=== PATIENT | female | born 1965 | race Two or more races ===

== ENCOUNTER 2018-09-10 12:16 | Inpatient (IN) | payer OTHER ==
[2018-09-02 16:02] LABS: BASOPHILS % (AUTO) 0.4 % (0-1); EOSINOPHILS # (AUTO) 0.1 X10'3 (0-0.9); EOSINOPHILS % (AUTO) 1.6 % (0-6); LYMPHOCYTES # (AUTO) 1.9 X10'3 (1.1-4.8); MEAN CORPUSCULAR HEMOGLOBIN 31.1 PG (27.0-31.0); MEAN CORPUSCULAR HGB CONC 33.5 % (33.0-36.5); MEAN CORPUSCULAR VOLUME 92.7 FL (78-98); MEAN PLATELET VOLUME 8.9 FL (7.4-10.4); MONOCYTES # (AUTO) 0.7 X10'3 (0-0.9); MONOCYTES % (AUTO) 10.1 % (2-12); NEUTROPHILS # (AUTO) 3.7 X10'3 (1.8-7.7); NEUTROPHILS % (AUTO) 57.9 % (42-75); PRE OP HEMATOCRIT 41.8 % (35.0-45.0); PRE OP PLATELET COUNT 290 X10'3 (140-440); RED BLOOD COUNT 4.51 X10'6 (4.20-5.60)
[2018-09-02 16:10] LABS: ALBUMIN 3.6 G/DL (3.4-5.0); ALBUMIN/GLOBULIN RATIO 0.9 (1.1-1.5); ALKALINE PHOSPHATASE 99 IU/L (46-116); BLOOD UREA NITROGEN 13 MG/DL (7-18); BUN/CREATININE RATIO 20.3 (6.6-38.0); CALCIUM 8.8 MG/DL (8.5-10.1); CHLORIDE 104 MMOL/L (99-107); CREATININE 0.64 MG/DL (0.40-0.90); PRE OP ALT 44 U/L (30-65); PRE OP ANION GAP 8 (8-16); PRE OP AST 26 U/L (10-37); PRE OP BILIRUB, TOTAL 0.2 MG/DL (0.0-1.0); PRE OP GLUCOSE 113 MG/DL (70-104); PRE OP POTASSIUM 3.6 MMOL/L (3.4-5.1); PRE OP SODIUM 141 MMOL/L (135-145); TOTAL CARBON DIOXIDE 28.8 MMOL/L (24-32); TOTAL PROTEIN 7.4 G/DL (6.4-8.2); eGFR > 90 ML/MIN
[2018-09-02 16:14] LABS: PRE OP PROTIME 10.1 SECONDS (9.0-12.0)
[2018-09-02 16:18] LABS: CLARITY,URINE CLEAR (Clear); COLOR,URINE YELLOW (Yellow); GLUCOSE, URINE NEGATIVE (Neg); KETONES,URINE NEGATIVE (Neg); LEUKOCYTE ESTERASE ,URINE NEGATIVE (Neg); NITRITES, URINE NEGATIVE (Neg); OCCULT BLOOD,URINE NEGATIVE (Neg); PH,URINE 7.5 (4.8-8.0); PROTEIN,URINE NEGATIVE (Neg)
[2018-09-02 16:25] LABS: UA COLLECTION TYPE CLN CATCH MIDSTREAM
[~2018-09-10] VITALS: Ht 154.9 cm; Wt 90.9 kg
[2018-09-10] VITALS (13 sets, daily range): BP systolic 96–138; BP diastolic 52–92
[~2018-09-10 12:16] MED LIST: ALLO300T8 PO; DOCUMENT DATE & TIME OF BETA-BLOCKER PO ONE; METO-411 PO; acetaminophen 325mg tablet PO ONE; cefazolin/dext.iso 2gm/50ml 50 ML IV ONE; famotidine 20mg tablet PO ONE; gabapentin 300mg capsule PO ONE; metoclopramide 5 mg/ml inj IV ONE; oxyCODONE SR 10mg (sust. release) tab -2 tabs (20mg) PO ONE; ringers solution, lacted 1,000 ML IV SCH; tranexamic acid inj. 1,000 MG in normal saline 100ml IV soln 90 ML IV ONE; vancomycin inj 1,500 MG in normal saline 300ml IV soln IV ONE
[2018-09-10] MEDS ORDERED: morphine 10mg/ml inj. ONE (13:37)
[2018-09-10] MEDS ORDERED: ketorolac trometh. 30mg/ml inj. ONE (13:37)
[2018-09-10] MEDS ORDERED: epiNEPHrine 1 mg/ml inj ONE ×2 (13:37→18:51)
[2018-09-10] MEDS ORDERED: vancomycin 1,000mg inj ONE (13:37)
[2018-09-10] MEDS ORDERED: ROPIVAcaine 0.5% (5mg/ml) 30ml vial ONE ×3 (13:38→19:56)
[2018-09-10] MEDS ORDERED: tetracaine 1% (10mg/ml) pres. free inj. ONE (17:48)
[2018-09-10] MEDS ORDERED: MIDAZolam 1mg/ml 10ml vial ONE (17:49)
[2018-09-10] MEDS ORDERED: fentaNYL/PF 50MCG/1 ML 2ML syringe ONE (17:49)
[2018-09-10] MEDS ORDERED: BUPIVAcaine/dex-water/PF 7.5 mg/ml 2ml ampul ONE (17:53)
[2018-09-10] MEDS ORDERED: propofol inj 20 ML IV ONE (18:19)
[2018-09-10] MEDS ORDERED: ringers solution, lacted 1,000 ML IV SCH (18:54)
[2018-09-10] MEDS ORDERED: morphine 4 MG/ML inj SYRINge IV PRN ×2 (18:55)
[2018-09-10] MEDS ORDERED: meperidine/PF 25mg/ml syringe IV PRN ×3 (18:55)
[2018-09-10] MEDS ORDERED: proCHLORperazine 10 MG/2 ml inj IV PRN (18:55)
[2018-09-10] MEDS ORDERED: ondansetron/PF 4mg/2ml inj IV PRN ×2 (18:55→20:10)
[2018-09-10] MEDS ORDERED: acetaminophen 325mg tablet PO PRN (20:10)
[2018-09-10] MEDS ORDERED: HYDROmorphone 1 mg/ml syringe IV PRN (20:10)
[2018-09-10] MEDS ORDERED: bisacodyl 10mg suppository rectal RC PRN (20:10)
[2018-09-10] MEDS ORDERED: diphenhydrAMINE 25mg capsule PO PRN (20:10)
[2018-09-10] MEDS ORDERED: magnesium hydroxide 30ml (MOM) UD suspension PO PRN (20:10)
[2018-09-10] MEDS: potassium cl 20mEq in 1/2 NS 1,000 ML IV SCH (20:10)
[2018-09-10] MEDS ORDERED: oxyCODONE IR 5mg (immed. release) tablet PO PRN (20:10)
[2018-09-10] MEDS: sennosides 8.6mg tablet PO SCH (21:00)
[2018-09-10] MEDS: gabapentin 300mg capsule PO SCH (21:00)
[2018-09-10] MEDS ORDERED: tranexamic acid inj. 1,000 MG in normal saline 100ml IV soln 100 ML IV ONE (23:00)
[2018-09-11] VITALS (9 sets, daily range): BP systolic 92–118; BP diastolic 46–85
[2018-09-11] MEDS: ceFAZolin 1GM/D5W- ADD-VANTAGE 50 ML IV SCH ×2 (00:49→08:32)
[2018-09-11] MEDS: acetaminophen 325mg tablet PO SCH ×4 (02:54→19:01)
[2018-09-11] MEDS: HYDROmorphone 1 mg/ml syringe IV PRN ×3 (02:56→17:06)
[2018-09-11] MEDS: potassium cl 20mEq in 1/2 NS 1,000 ML IV SCH ×3 (03:05→19:06)
[2018-09-11 06:18] LABS: BASOPHILS % (AUTO) 0.3 % (0-1); EOSINOPHILS % (AUTO) 0 % (0-6); HEMATOCRIT 36.7 % (35.0-45.0); HEMOGLOBIN 12.3 g/dl (12.0-16.0); LYMPHOCYTES # (AUTO) 0.8 X10'3 (1.1-4.8); LYMPHOCYTES % (AUTO) 7.4 % (21-51); MEAN CORPUSCULAR HEMOGLOBIN 31.1 PG (27.0-31.0); MEAN CORPUSCULAR HGB CONC 33.5 % (33.0-36.5); MEAN CORPUSCULAR VOLUME 92.8 FL (78-98); MEAN PLATELET VOLUME 8.7 FL (7.4-10.4); MONOCYTES # (AUTO) 0.2 X10'3 (0-0.9); NEUTROPHILS # (AUTO) 9.6 X10'3 (1.8-7.7); NEUTROPHILS % (AUTO) 90.3 % (42-75); PLATELET COUNT 249 X10'3 (140-440); RED BLOOD COUNT 3.95 X10'6 (4.20-5.60); RED CELL DISTRIBUTION WIDTH 12.9 % (11.5-14.5); WHITE BLOOD COUNT 10.6 X10'3 (4.5-11.0)
[2018-09-11 06:22] LABS: ANION GAP 10 (8-16); CHLORIDE 103 MMOL/L (99-107); POTASSIUM 4.4 MMOL/L (3.5-5.1); SODIUM 137 MMOL/L (135-145); TOTAL CARBON DIOXIDE 24.1 MMOL/L (24-32)
[2018-09-11] MEDS: oxyCODONE IR 5mg (immed. release) tablet PO PRN ×4 (07:00→19:06)
[2018-09-11] MEDS: metoprolol succinate 25mg (24-HOUR) SR. Tablet PO SCH (08:00)
[2018-09-11] MEDS ORDERED: vancomycin/NS 1 GM ADD-VANTAGE 250 ML IV SCH (08:00)
[2018-09-11] MEDS: gabapentin 300mg capsule PO SCH ×3 (08:32→20:04)
[2018-09-11] MEDS: allopurinol 300 MG tablet PO SCH (08:33)
[2018-09-11] MEDS: celeCOXIB 100mg capsule PO SCH (19:01)
[2018-09-11] MEDS: enoxaparin 30mg/0.3ml syringe SQ SCH (19:02)
[2018-09-11] MEDS: sennosides 8.6mg tablet PO SCH (20:04)
[2018-09-11] MEDS: diphenhydrAMINE 25mg capsule PO PRN (21:11)
[2018-09-12] MEDS: acetaminophen 325mg tablet PO SCH ×4 (01:54→19:03)
[2018-09-12] MEDS: oxyCODONE IR 5mg (immed. release) tablet PO PRN ×5 (03:07→21:13)
[2018-09-12] MEDS: HYDROmorphone 1 mg/ml syringe IV PRN (04:37)
[2018-09-12 06:00] VITALS: BP 113/56
[2018-09-12 07:01] LABS: BASOPHILS % (AUTO) 0.3 % (0-1); EOSINOPHILS # (AUTO) 0.1 X10'3 (0-0.9); EOSINOPHILS % (AUTO) 1.5 % (0-6); HEMATOCRIT 31.4 % (35.0-45.0); HEMOGLOBIN 10.6 g/dl (12.0-16.0); LYMPHOCYTES % (AUTO) 28.8 % (21-51); MEAN CORPUSCULAR HEMOGLOBIN 31.1 PG (27.0-31.0); MEAN CORPUSCULAR HGB CONC 33.8 % (33.0-36.5); MEAN CORPUSCULAR VOLUME 92.2 FL (78-98); MEAN PLATELET VOLUME 8.7 FL (7.4-10.4); MONOCYTES # (AUTO) 0.8 X10'3 (0-0.9); MONOCYTES % (AUTO) 12.2 % (2-12); NEUTROPHILS % (AUTO) 57.2 % (42-75); PLATELET COUNT 206 X10'3 (140-440); RED BLOOD COUNT 3.41 X10'6 (4.20-5.60)
[2018-09-12] MEDS: metoprolol succinate 25mg (24-HOUR) SR. Tablet PO SCH (08:00)
[2018-09-12] MEDS: enoxaparin 30mg/0.3ml syringe SQ SCH ×2 (08:15→19:06)
[2018-09-12] MEDS: gabapentin 300mg capsule PO SCH ×3 (08:16→21:30)
[2018-09-12] MEDS: allopurinol 300 MG tablet PO SCH (08:16)
[2018-09-12] MEDS: celeCOXIB 100mg capsule PO SCH ×2 (08:17→19:03)
[2018-09-12 08:20] VITALS: BP 94/55
[2018-09-12 10:00] VITALS: BP 123/64
[2018-09-12] MEDS: diphenhydrAMINE 25mg capsule PO PRN (15:35)
[2018-09-12 17:00] VITALS: BP 121/61
[2018-09-12] MEDS ORDERED: acetaminophen 325mg tablet PO PRN (20:10)
[2018-09-12] MEDS: sennosides 8.6mg tablet PO SCH (21:12)
[2018-09-12 22:00] VITALS: BP 123/63
[2018-09-13] MEDS: oxyCODONE IR 5mg (immed. release) tablet PO PRN ×2 (04:24→08:36)
[2018-09-13 06:00] VITALS: BP 130/66
[2018-09-13 07:08] LABS: BASOPHILS % (AUTO) 0.4 % (0-1); EOSINOPHILS # (AUTO) 0.2 X10'3 (0-0.9); EOSINOPHILS % (AUTO) 3.2 % (0-6); HEMOGLOBIN 11.3 g/dl (12.0-16.0); LYMPHOCYTES # (AUTO) 1.9 X10'3 (1.1-4.8); LYMPHOCYTES % (AUTO) 24.6 % (21-51); MEAN CORPUSCULAR HEMOGLOBIN 31.7 PG (27.0-31.0); MEAN CORPUSCULAR HGB CONC 34.4 % (33.0-36.5); MEAN CORPUSCULAR VOLUME 92.3 FL (78-98); MEAN PLATELET VOLUME 8.8 FL (7.4-10.4); MONOCYTES % (AUTO) 13.1 % (2-12); NEUTROPHILS # (AUTO) 4.4 X10'3 (1.8-7.7); NEUTROPHILS % (AUTO) 58.7 % (42-75); PLATELET COUNT 205 X10'3 (140-440); RED BLOOD COUNT 3.57 X10'6 (4.20-5.60); RED CELL DISTRIBUTION WIDTH 13.1 % (11.5-14.5); WHITE BLOOD COUNT 7.5 X10'3 (4.5-11.0)
[2018-09-13] MEDS: metoprolol succinate 25mg (24-HOUR) SR. Tablet PO SCH (08:35)
[2018-09-13] MEDS: celeCOXIB 100mg capsule PO SCH (08:35)
[2018-09-13] MEDS: allopurinol 300 MG tablet PO SCH (08:35)
[2018-09-13] MEDS: enoxaparin 30mg/0.3ml syringe SQ SCH (08:35)
[2018-09-13] MEDS: gabapentin 300mg capsule PO SCH (08:37)
== END 2018-09-13 10:45 | disposition home or self-care (01) | DRG 470 ==
LOC: PAS IN 13:02 → EDSTATUS 16:15 → ORTHO 4S 21:38
PROVIDERS: ADMIT Orthopaedic Surgery; ATTEND Orthopaedic Surgery
PROC: 8E0YXCZ Robotic Assisted Procedure of Lower Extremity (ICD-10-PCS; 2018-09-10)
PROC: 3E0T3BZ Introduction of Anesthetic Agent into Peripheral Nerves and Plexi, Percutaneous Approach (ICD-10-PCS; 2018-09-10)
PROC: 0SRC069 Replacement of Right Knee Joint with Oxidized Zirconium on Polyethylene Synthetic Substitute, Cemented, Open Approach (ICD-10-PCS; principal; 2018-09-10 17:48)
DX: M17.11 Unilateral primary osteoarthritis, right knee (principal); D62 Acute posthemorrhagic anemia; I10 Essential (primary) hypertension; R73.03 Prediabetes; M1A.09X0 Idiopathic chronic gout, multiple sites, without tophus (tophi); E66.9 Obesity, unspecified; Z88.5 Allergy status to narcotic agent; Z68.37 Body mass index [BMI] 37.0-37.9, adult
CPT/HCPCS: 36415; 80051; 80053; 81003; 83036; 85025; 85610; 85730; 87070; 97110; 97116; 97161; 97530; 97535; A4615; A6455; A7000; C1713; C1758; C1776; C9250; G0378; J0171; J0690; J1170; J1650; J1885; J2250; J2270; J2405; J2704; J2765; J2795; J3010; J3370; J3490; J7030; J7120; Q0163